=== PATIENT | female | born 1960 | race Caucasian/White ===

== ENCOUNTER → 2017-06-24 | Outpatient (CLI) | payer OTHER ==
--- NOTE | 2017-06-24 10:56 | CTL ---
EXAMINATION TYPE: CT Low Dose Lung DATE OF EXAM ORDERED: 06/24/2017 HISTORY: Personal history of tobacco abuse. Lung cancer screening. CT DLP: 37.[address] CTDI: 1.10 mGy Automated exposure control for dose reduction was used. SCREENING VISIT: Second COMPARISON: 11/07/2015 TECHNIQUE: Low dose computed tomography scan was performed through the chest at 1 mm thick sections a nd reconstructed images in the coronal plane at [address] DIAGNOSTIC QUALITY: Satisfactory FINDINGS: LUNG NODULES: There is a left upper lobe solid 7 mm pulmonary nodule on series 4 image 58 adjacent to an area of li near pleural parenchymal scarring. This demonstrates interval growth as this previously measured appr oximately 4 mm. The previously seen right sided solid pulmonary nodule again measures 3 mm and is unchanged, pleural- based in favored to represent an area of pleural thickening or scarring rather than a true pulmonary nodule. LUNGS: COPD: Severity: Moderate Fibrosis: Severity: None Lymph nodes: No pathologically enlarged lymph nodes. 7 mm short axis aorticopulmonary window lymph no de is unchanged from the prior. Other findings: There are scattered areas of subsegmental atelectasis. RIGHT PLEURAL SPACE: Effusion: None Calcification: None Thickening: Solitary pulmonary nodule versus focal pleural thickening is described above in the lung nodule section. Pneumothorax: None LEFT PLEURAL SPACE: Effusion: None Calcification: None Thickening: None Pneumothorax: None HEART: Heart Size: Nonenlarged. Ascending thoracic aorta is within normal limits measuring 3.3 cm as is the main pulmonary artery. Coronary calcification: Moderate Pericardial effusion: None OTHER FINDINGS: Upper abdomen: There is a somewhat lobulated contour of the left upper pole of the kidney versus exop hytic renal lesion on series 3 image 286. Further evaluation is recommended. Bony thorax: Mild multilevel degenerative changes of the thoracic spine. No suspicious osseous lesion . Supraclavicular region: Unremarkable IMPRESSION: 1. Interval growth of a left upper lobe solid 7 mm pulmonary nodule fitting criteria of lung RADS cat egory 4A (suspicious-finding). Low-dose CT in 3 months is recommended. 2. Lobulated contour versus left upper pole renal mass. Further evaluation with either renal ultrasou nd or dynamic contrast-enhanced CT abdomen is recommended. FOLLOW UP CT CHEST RECOMMENDATION: Low-dose CT in 3 months is recommended. Additional recommendation for the suspected left renal lesion as described above in the impression. CT LUNG RAD: 4A
--- NOTE | 2017-06-24 11:02 | MM ---
Reason for exam: additional evaluation requested from prior study. Last mammogram was performed 1 year and 7 months ago. History: Patient is postmenopausal. Took hormonal contraceptives beginning at age 19. Took estrogen for 5 years beginning at age 41. Took progesterone for 5 years beginning at age 41. Physical Findings: Nurse did not find any significant physical abnormalities on exam. MG Diagnostic Mammo w CAD JORGE Bilateral CC and MLO view(s) were taken. Prior study comparison: November 20, 2015, right breast MG work up mamm w CAD RT. November 07, 2015, bilateral MG screening mammo w CAD. The breast tissue is heterogeneously dense. This may lower the sensitivity of mammography. Finding: There are typically benign round calcifications in the right breast. There is a chronic nodularity in the right breast. There is no discrete abnormality. These results were verbally communicated with the patient and result sheet given to the patient on 06/24/17. ASSESSMENT: Benign, BI-RAD 2 RECOMMENDATION: Routine screening mammogram of both breasts in 1 year.
== END | disposition home or self-care (01) ==
LOC: RADCTMAIN 09:46
PROVIDERS: ATTEND Pediatrics
DX: R92.8 Other abnormal and inconclusive findings on diagnostic imaging of breast (principal); R91.1 Solitary pulmonary nodule; Z87.891 Personal history of nicotine dependence
CPT/HCPCS: 77066; G0297

== ENCOUNTER → 2017-07-09 | Outpatient (CLI) | payer OTHER ==
--- NOTE | 2017-07-09 11:20 | US ---
EXAMINATION TYPE: US abd limited kidneys/bladder DATE OF EXAM: 07/09/2017 COMPARISON: Low-dose CT 06/24/2017 CLINICAL HISTORY: 56-year-old female N28.9 Kidney lesion. Left renal lesion seen on CT Technique: Multiple sonographic images of the right upper quadrant, kidneys, and bladder are obtained . FINDINGS: Liver Length: 15.3 cm Gallbladder Wall: 0.2 cm CBD: 7.7 mm Right Kidney: 10.1 x 3.7 x 5.4 cm Left Kidney: 10.0 x 4.4 x 4.9 cm Pancreas: wnl Liver: wnl Gallbladder: Multiple, mobile gallstones, no evidence of Sweeney's sign. No abnormal distention or wa ll thickening. CBD: Mildly dilated for patient's age. Right Kidney: No hydronephrosis Left Kidney: Solid, mass upper pole with a couple tiny 9 mm and smaller cystic components measuring 2.5 x 2.2 x 3.0 cm Bladder: wnl Bilateral Jets Seen No IMPRESSION: 1. Suspicious 3.0 cm left upper pole solid renal mass. RCC should be excluded. 2. Cholelithiasis. 3. The bile duct is mildly dilated. Correlate with alkaline phosphatase and bilirubin levels to exclu de the possibility of biliary obstruction.
== END | disposition home or self-care (01) ==
LOC: RADUSWWP 08:09
PROVIDERS: ATTEND Pediatrics
DX: K80.20 Calculus of gallbladder without cholecystitis without obstruction (principal); K83.8 Other specified diseases of biliary tract
CPT/HCPCS: 76705; 76770

== ENCOUNTER → 2017-07-25 | Outpatient (CLI) | payer OTHER ==
[2017-07-25 10:53] LABS: Blood Urea Nitrogen 30 mg/dL (7-17)
--- NOTE | 2017-07-25 13:48 | CT ---
EXAMINATION TYPE: CT abdomen wo/w con DATE OF EXAM: 07/25/2017 HISTORY: Renal mass CT DLP: 288.4mGycm Automated Exposure Control for Dose Reduction was Utilized. CONTRAST: CT scan of the abdomen and pelvis is performed without and with IV Contrast, patient injected with 10 0 mL of Isovue 300. COMPARISON: 06/24/2017 FINDINGS: LUNG BASES: The patient's known moderate emphysematous changes are less appreciated at the lung bases than on the lung apices on the prior exam of 06/24/2017. LIVER/GB: Subcapsular subcentimeter area of hypoattenuation within the left hepatic lobe on series 6 image 21 may represent focal fatty infiltration as it is seen along the fissure for the falciform lig ament. Cholelithiasis is noted. No intrahepatic biliary ductal dilatation. PANCREAS: No significant abnormality is seen. SPLEEN: No significant abnormality is seen. No splenomegaly. ADRENALS: No nodularity or thickening. KIDNEYS: There is a complex partially cystic, partially solid lobulated mass emanating from the later al aspect of the left upper pole of the kidney measuring approximately 2.5 x 2.5 x 2.9 cm in transver se by by anterior posterior by craniocaudal dimension measured on series 6 image 12 and series 12 malu ge 67. There are internal enhancing cystic components and thick enhancing internal septa. This mass a buts the left upper pole minor calyces and therefore this patient may not be a candidate for cryoabla tion or radiofrequency ablation. This is best visualized on coronal series 12 image 64. Renal arterial calcifications are noted on the unenhanced images. No hydronephrosis or nephrolithiasi s. The left gonadal vein is slightly engorged although there does not appear to be thrombosis. Pelvic vascular congestion is possible. No appreciable thrombus within the left renal vein coronal imaging. BOWEL: No dilation. Moderate amount retained colonic stool. LYMPH NODES: No greater than 1cm abdominal or pelvic lymph nodes are appreciated. OSSEOUS STRUCTURES: Degenerative changes without suspicious osseous lesion. IMPRESSION: 1. Complex enhancing 2.5 x 2.5 x 2.9 cm left upper pole highly suspicious mass that should be conside red renal cell carcinoma until proven otherwise. Of note this abuts the left upper pole calyx and the refore the patient may not be a candidate for cryoablation or radiofrequency ablation. Percutaneous b iopsy could be considered or surgical management. 2. No evidence of abdominal adenopathy, suspicious osseous lesion, or suspicious visceral metastasis. No appreciable thrombus within the left renal vein. Left gonadal vein is slightly engorged without i dentified thrombosis. Pelvic congestion syndrome is possible.
== END ==
LOC: RADCTMAIN 10:14
PROVIDERS: ATTEND Urology
DX: D41.02 Neoplasm of uncertain behavior of left kidney (principal)
CPT/HCPCS: 82565; 84520; 74170; Q9967

== ENCOUNTER → 2017-12-22 | Outpatient (CLI) | payer OTHER ==
--- NOTE | 2017-12-22 12:20 | CTL ---
EXAMINATION TYPE: CT Low Dose Lung DATE OF EXAM ORDERED: 12/22/2017 HISTORY: Long-term tobacco use. Lung cancer screening CT DLP: [address] CTDI: 1.34 mGy Automated exposure control for dose reduction was used. SCREENING VISIT: Third study COMPARISON: Prior exams June 24, 2017 and older study November 07, 2015 TECHNIQUE: Low dose computed tomography scan was performed through the chest at 1 mm thick sections a nd reconstructed images in the coronal plane at [address] DIAGNOSTIC QUALITY: Satisfactory FINDINGS: LUNG NODULES: Present, detailed below: Right lung a nodule with a size of 7 x 6 mm solid nodule left upper lobe anteriorly axial image 61 re demonstrated not significantly changed in size from most recent CT, increased in size from 2016 CT. No new nodules are evident LUNGS: COPD: Severity: Moderate Fibrosis: Severity: Mild linear scarring in bases and anterior medially redemonstrated Lymph nodes: None Other findings: None BILATERAL PLEURAL SPACE: Effusion: None Calcification: None Thickening: None Pneumothorax: None HEART: Heart Size: Normal Coronary calcification: Moderate to severe 3 vessel redemonstrated Pericardial effusion: None OTHER FINDINGS: Upper abdomen: Suspect interval surgery or new sutures lateral aspect upper pole left kidney. Bony thorax: None Supraclavicular region: None Other: None IMPRESSION: Stable 7 x 6 mm left upper lobe nodule FOLLOW UP CT CHEST RECOMMENDATION: Follow-up low-dose lung screening CT in [address] LUNG RAD: Lung-Rad 3 Probably Benign
== END | disposition home or self-care (01) ==
LOC: RADCTMAIN 11:13
PROVIDERS: ATTEND Pediatrics
DX: Z12.2 Encounter for screening for malignant neoplasm of respiratory organs (principal); R91.1 Solitary pulmonary nodule; Z87.891 Personal history of nicotine dependence

== ENCOUNTER → 2018-04-20 | Outpatient (CLI) | payer OTHER ==
--- NOTE | 2018-04-22 14:59 | MR ---
EXAMINATION TYPE: MR brain wo/w con DATE OF EXAM: 04/20/2018 COMPARISON: Outside imaging of an MRI of the brain with and without gadolinium and MRA brain dated HISTORY: No symptoms, F/U to previous MRI done at [facility] TECHNIQUE: Multiplanar, multisequence images of the brain and brainstem is performed without and with IV contras t, utilizing 5 mL intravenous Gadavist . FINDINGS: Bone marrow signal is within normal limits. Diffusion weighted images demonstrate no eviden ce of a recent infarct or other diffusion abnormality. There are similar size and number of the T2/T1 hyperintense nonspecific white matter changes throughout the periventricular and subcortical white m atter. For instance a Y-shaped subcortical white matter change in the left paramedian frontal lobe me asures 1.8 x 0.8 cm, unchanged from the prior of 09/02/2017. This is overall moderate burden. There is also nonspecific T2/FLAIR hyperintensity within the central midbrain and paramedian sonu. These nons pecific white matter changes do not demonstrate abnormal enhancement. There is no extra-axial fluid collection. The ventricular system and cisternal spaces are normal in s ize and appearance. The brain volume is age appropriate. Midline structures demonstrate normal morphology. The craniocervical junction appears within normal limits. Major intracranial flow voids are maintained. Post contrast images demonstrate no abnormal en hancement. The dural venous sinuses appear patent. Scant mucosal thickening is seen within the chest. The remaining visualized sinuses are clear and the globes are intact. IMPRESSION: 1. No abnormal intracranial enhancement. No MR evidence of intracranial metastasis. 2. Similar size and number of the moderate burden periventricular and subcortical nonspecific white m atter change in comparison to the prior MRI dated 09/02/2017. Most commonly these relate to sequela of microangiopathy although other vasculitis or demyelinating disease remain a possibility. No progress ion. 3. No acute infarct or midline shift. 4. Bone marrow signal remains unremarkable.
== END ==
LOC: RADMRIMAIN 20:25
PROVIDERS: ATTEND Pediatrics
DX: I73.9 Peripheral vascular disease, unspecified (principal); R90.89 Other abnormal findings on diagnostic imaging of central nervous system
CPT/HCPCS: 70553; A9585

== ENCOUNTER → 2018-05-15 | Outpatient (CLI) | payer OTHER ==
[2018-05-15 16:53] LABS: Blood Urea Nitrogen 23 mg/dL (7-17)
--- NOTE | 2018-05-19 13:18 | CT ---
EXAMINATION TYPE: CT ChestAbdPelvis wo/w con DATE OF EXAM: 05/15/2018 COMPARISON: Low dose lung CT dated 12/22/2017, 06/24/2017 and 11/07/2015. CT abdomen dated 07/25/2017. HISTORY: Renal cell carcinoma of left kidney. CT DLP: 691.7 mGycm. Automated Exposure Control for Dose Reduction was Utilized. CONTRAST: CT scan of the thorax, abdomen and pelvis is performed without and with IV Contrast, patient injected with 100ml mL of Isovue 300. FINDINGS: LUNGS: There is a stable 7 to 8 mm left upper lobe lobe pulmonary nodule in comparison to the prior e xams of 2018 however in comparison to the exam of 2016 there is minimal interval growth. When measure d in a similar fashion this measures 5 mm on the prior of 2015. A punctate focus of intranodular fat is identified therefore this is overall favored to be a benign slow-growing lesion. There is mild to moderate underlying pulmonary emphysema. The remainder of the lungs are grossly clear, there is no co ncerning parenchymal mass or nodule identified. There is no pleural effusion or pneumothorax seen. The tracheobronchial tree is patent. MEDIASTINUM: There are no greater than 1 cm hilar or mediastinal lymph nodes. No pericardial effusi on is seen. Moderate coronary calcifications are evident. LIVER/GB: No significant abnormality is appreciated. Lamellated gallstones are seen. PANCREAS: No biliary ductal dilatation. Pancreatic parenchyma enhances homogeneously. SPLEEN: No significant abnormality is seen. No splenic enlargement. ADRENALS: No nodularity or thickening. KIDNEYS: Noncontrast hyperdense curvilinear surgical material seen within the peripheral posterior la teral left upper pole kidney. On the nephrographic phase there is a focal cortical defect with elonga munira area of hypoattenuation extending to the periphery of the spleen may represent granulation tissue and postsurgical change. As this does not demonstrate enhancement. Remainder of the left kidney on t he nephrogenic and delayed phase demonstrates no focal mass. No uroepithelial thickening is seen on t he delayed phase of either kidney. Right kidney is unremarkable. No new local adenopathy or soft tiss ue deposition in the surgical bed is seen. BOWEL: Moderate amount retained colonic stool is noted. No dilated large or small bowel. LYMPH NODES: No greater than 1cm abdominal or pelvic lymph nodes are appreciated. OSSEOUS STRUCTURES: Cervical fusion device is present. No new suspicious osseous lesions are identifi ed. IMPRESSION: 1. Postsurgical change of a partial nephrectomy of the left upper pole with nonenhancing fluid attenu ation seen peripherally at the surgical site likely representing early granulation tissue. Continued surveillance is recommended. No new local adenopathy. No new evidence of metastasis within the chest , abdomen, nor pelvis. 2. Slow-growing left upper lobe pulmonary nodule is seen dating back to 11/07/2015 and appears to cont ain punctate intranodular macroscopic fat overall favored to be benign.
== END | disposition home or self-care (01) ==
LOC: RADCTMAIN 15:40
PROVIDERS: ATTEND Pediatrics
DX: Z08 Encounter for follow-up examination after completed treatment for malignant neoplasm (principal); R91.1 Solitary pulmonary nodule; Z90.5 Acquired absence of kidney; Z85.528 Personal history of other malignant neoplasm of kidney
CPT/HCPCS: 82565; 84520; 71270; 74178; 36415; Q9967

== ENCOUNTER → 2019-01-05 | Outpatient (CLI) | payer OTHER ==
[2019-01-05 10:32] LABS: African American GFR (CKD) >90 (>60 ml/min/1.73 sqM); Blood Urea Nitrogen 26 mg/dL (7-17)
--- NOTE | 2019-01-05 16:17 | CT ---
EXAMINATION TYPE: CT chest w con DATE OF EXAM: 01/05/2019 COMPARISON: CT chest abdomen pelvis dated 05/15/2018 and low dose lung CTs dating back to 11/07/2015. HISTORY: Pulmonary nodule CT DLP: 108.00 mGycm. Automated Exposure Control for Dose Reduction was Utilized. TECHNIQUE: CT scan of the thorax is performed following with IV Contrast, patient injected with 100 ml mL of Isovue 300. FINDINGS: LUNGS: The previously seen solid 8 mm left upper lobe pulmonary nodule (prior on series 4 image 13) i s now some solid and measures only 5 mm. This is of marked decrease density in comparison to the prio r. On the prior exam a punctate focus of intranodular fat was seen. There is redemonstration of mild to moderate underlying centrilobular pulmonary emphysema. No new pulmonary nodule is identified. Ther e is bandlike anterior right upper lobe pleural parenchymal scarring. Minimal lingular and right midd le lobe subsegmental atelectasis is seen. No focal consolidation, pleural effusion or pneumothorax. Pleural nodularity is redemonstrated measur ing 3 mm along the posterior right upper lobe on image 20. Again this is favored to represent stable scarring. Just distal to the stacey within the right mainstem bronchus there is an elongated filling defect. Th is appears inspissated and is marked on soft tissue algorithm series 3 image 28 and 29 and likely rep resents secretions rather than endobronchial mass. This is new from the prior exam. MEDIASTINUM: There are no greater than 1 cm hilar or mediastinal lymph nodes. No pericardial effusi on is seen. Moderate coronary artery calcifications are present. Mild thickening of the gastroesopha geal junction, most commonly related to esophagitis. OTHER: Partial visualization of cervical fusion device. Mild calcific atheromatous change of the thor acic aorta. Ascending thoracic aorta is within normal limits measuring 3.1 cm as is the main pulmonar y artery measuring 2.1 cm. Descending thoracic aorta is also within normal limits. Curvilinear suture material from the partial nephrectomy in the left upper pole of the kidney is agai n seen. The previously suspected curvilinear granulation tissue but elongated in the splenorenal xochitl a appears stable. This is marked on series 3 image 65. No new left renal vein thrombosis in the visua lized left renal vein. Extensive atheromatous change of the visualized abdominal aorta. Near angiogra phic phase of the liver slightly limits evaluation. The liver appears overall heterogenous an also li mits evaluation. Mild multilevel degenerative changes of the thoracic spine. No new suspicious osseous lesion. IMPRESSION: 1. The previously seen 8 mm solid left upper lobe pulmonary nodule is diminished intensity and size n ow measuring only 5 mm. Correlate with any recent treatment. 2. Presumably granulation tissue neural remain similar to the prior exam of 05/15/2018 surrounding the partial nephrectomy site of the left upper pole of the kidney. No new left renal vein thrombosis nor suspicious cortical mass. 3. Just distal to the stacey in the right mainstem bronchus elongated filling defect is seen that sergio ears inspissated on lung windows likely representing secretions rather than endobronchial mass. This is new from the prior. Attention on follow-up exams. 4. Mild thickening at the gastroesophageal junction most commonly related to esophagitis. 5. No new pulmonary nodules or suspicious osseous lesions. No new mediastinal adenopathy. Liver is freitas boptimally evaluated on this exam.
== END | disposition home or self-care (01) ==
LOC: RADCTMAIN 09:37
PROVIDERS: ATTEND Pediatrics
DX: J98.09 Other diseases of bronchus, not elsewhere classified (principal); R91.1 Solitary pulmonary nodule; C64.2 Malignant neoplasm of left kidney, except renal pelvis; Z90.5 Acquired absence of kidney
CPT/HCPCS: 82565; 84520; 71260; 36415; Q9967

== ENCOUNTER → 2019-02-01 | Outpatient (CLI) | payer OTHER ==
--- NOTE | 2019-02-01 16:07 | XR ---
EXAMINATION TYPE: XR chest 2V DATE OF EXAM: 02/01/2019 COMPARISON: CT 01/05/2019 HISTORY: Cough TECHNIQUE: Frontal and lateral views of the chest are obtained. FINDINGS: There is no focal air space opacity, pleural effusion, or pneumothorax seen. The cardiac silhouette size is stable, small. The osseous structures are intact. Prominent lung volumes are pre sent consistent with emphysema and COPD. Postop changes are noted in the cervical spine. There are co ronary calcifications. IMPRESSION: No acute cardiopulmonary process.
== END | disposition home or self-care (01) ==
LOC: RADXRMAIN 13:09
PROVIDERS: ATTEND Physician Assistant
DX: R05 Cough (principal)
CPT/HCPCS: 71046

== ENCOUNTER → 2019-02-03 | Outpatient (CLI) | payer OTHER ==
[2019-02-03 14:59] LABS: Basophils # (A) 0.1 k/uL (0-0.2); Basophils % (A) 1 %; Eosinophils # (A) 0.1 k/uL (0-0.7); Eosinophils % (A) 0 %; HGB 18.3 gm/dL (11.4-16.0); Lymphocytes # (A) 1.4 k/uL (1.0-4.8); Lymphocytes % (A) 12 %; MCH 29.9 pg (25.0-35.0); MCHC 32.3 g/dL (31.0-37.0); MCV 92.6 fL (80.0-100.0); Mean Platelet Volume 5.7; Monocytes # (A) 0.4 k/uL (0-1.0); Monocytes % (A) 4 %; Neutrophils # (A) 9.4 k/uL (1.3-7.7); Neutrophils % (A) 82 %; Platelet Count 285 k/uL (150-450); RDW 13.4 % (11.5-15.5); WBC 11.5 k/uL (3.8-10.6)
[2019-02-03 15:01] LABS: ALT 54 U/L (9-52); AST 33 U/L (14-36); African American GFR (CKD) >90 (>60 ml/min/1.73 sqM); Albumin 4.5 g/dL (3.5-5.0); Albumin/Globulin Ratio 1.6; Alkaline Phosphatase 107 U/L (38-126); Anion Gap 10 mmol/L; Blood Urea Nitrogen 24 mg/dL (7-17); Calcium 9.8 mg/dL (8.4-10.2); Carbon Dioxide 30 mmol/L (22-30); Chloride 98 mmol/L (98-107); Creatine Kinase 30 U/L (30-135); Globulin 2.9 g/dL; Glucose 150 mg/dL (74-99); Non-African American GFR(CKD) >90 (>60 ml/min/1.73 sqM); Potassium 4.2 mmol/L (3.5-5.1); Sodium 138 mmol/L (137-145); Total Bilirubin 0.5 mg/dL (0.2-1.3); Total Protein 7.4 g/dL (6.3-8.2)
[2019-02-03 15:02] LABS: HCT 56.5 % (34.0-46.0)
[2019-02-03 15:31] LABS: Creatine Kinase MB 1.8 ng/mL (0.0-2.4); Troponin I <0.012 ng/mL (0.000-0.034)
== END | disposition home or self-care (01) ==
LOC: LABWHC1 14:30
PROVIDERS: ATTEND Physician Assistant
DX: R07.9 Chest pain, unspecified (principal)
CPT/HCPCS: 36415; 80053; 82550; 82553; 84484; 85025; 85379

== ENCOUNTER → 2019-08-23 | Outpatient (CLI) | payer OTHER ==
--- NOTE | 2019-08-23 08:54 | CT ---
EXAMINATION TYPE: CT ChestAbdPelvis w con, CT abdomen pelvis wo con DATE OF EXAM: 08/23/2019 COMPARISON: Prior chest CT January 05, 2019. Prior body CT May 15, [address] studies. HISTORY: follow up pulmonary nodule and renal cancer (accession [id number]), follow up renal cancer (ac cession [id number]) CT DLP: 394.5 (accession [id number]), 191.4 (accession [id number]) mGycm. Automated Exposure Control for Dose Reduction was Utilized. CONTRAST: CT of the abdomen and pelvis was performed with oral but without IV contrast. CT scan of the thorax, abdomen and pelvis is then performed with oral and with IV Contrast, patient i njected with 80 mL of Isovue 300. FINDINGS: LUNGS: Background fairly moderate underlying emphysematous change is redemonstrated. Previously visua lized anterior left upper lobe nodule continues to show interval improvement with 4 x 3 mm residual s car or scarlike opacity on axial image 29. Stable 3 mm subpleural nodular scarring posterior right up per lung axial image 38 unchanged from several prior studies. Persistent moderate anterior right uppe r to mid lung linear scarring is redemonstrated. Similar [id number] anterior left mid lung line ar scarring is again seen. No new greater than 4 mm pulmonary nodules or masses. No pleural effusion or pneumothorax is evident bilaterally. Improved aeration right mainstem bronchus on current study. MEDIASTINUM: There are no new greater than 1 cm hilar or mediastinal lymph nodes. No cardiomegaly o r pericardial effusion is seen. Coronary artery calcification is redemonstrated. LIVER/GB: Dependent calcified gallstones and gallbladder are redemonstrated. Stable hepatomegaly. PANCREAS: No significant abnormality is seen. SPLEEN: No significant abnormality is seen. ADRENALS: No significant abnormality is seen. KIDNEYS: Noncontrast images show no renal calculi bilaterally. Persistent postsurgical change lateral ly of the pole of the left kidney at site of prior partial nephrectomy with focal cortical volume los s. Hyperdense curvilinear surgical suture material redemonstrated. Postcontrast images show no new en hancing tissue. Persistent area of exophytic low density probable scar tissue remains present near im age 89 series 4 without significant change or growth from most recent CT May 15, 2018. Postcontrast images redemonstrate symmetric cortical medullary uptake and excretion without hydronephrosis seen b ilaterally. Urinary bladder appears within normal limits. BOWEL: Oral contrast reaches the proximal to mid sigmoid colon. No suspicious small or large bowel di latation. Incidental normal contrast-filled appendix in the right pelvis. GENITAL ORGANS: Anteverted uterus projects to right of midline. Slight stable prominence of the drain ing left ovarian veins is noted. LYMPH NODES: No greater than 1cm abdominal or pelvic lymph nodes are appreciated. OSSEOUS STRUCTURES: Fusion hardware in the cervical spine is partially imaged. OTHER: Fairly severe calcified plaque of the abdominal aorta extends to the iliac branch vessels. IMPRESSION: No new suspicious mass or adenopathy to suggest local or metastatic neoplastic recurrence .
== END | disposition home or self-care (01) ==
LOC: RADCTMAIN 06:09
PROVIDERS: ATTEND Physician Assistant
DX: C64.2 Malignant neoplasm of left kidney, except renal pelvis (principal); R91.1 Solitary pulmonary nodule
CPT/HCPCS: 71260; 74176; 74177; Q9967

== ENCOUNTER → 2019-09-28 | Outpatient (CLI) | payer OTHER ==
--- NOTE | 2019-09-29 10:06 | MM ---
Reason for exam: screening (asymptomatic). Last mammogram was performed 2 years and 3 months ago. History: Patient is postmenopausal. Took hormonal contraceptives beginning at age 19. Took estrogen for 5 years beginning at age 41. Took progesterone for 5 years beginning at age 41. Physical Findings: A clinical breast exam by your physician is recommended on an annual basis and results should be correlated with mammographic findings. MG Screening Mammo w CAD Bilateral CC and MLO view(s) were taken. Prior study comparison: June 24, 2017, bilateral MG diagnostic mammo w CAD JORGE. November 20, 2015, right breast MG work up mamm w CAD RT. The breast tissue is heterogeneously dense. This may lower the sensitivity of mammography. Benign appearing bilateral calcifications. There is chronic nodularity in the right breast, stable. ASSESSMENT: Benign, BI-RAD 2 RECOMMENDATION: Routine screening mammogram of both breasts in 1 year.
== END | disposition home or self-care (01) ==
LOC: RADMAMWWP 13:32
PROVIDERS: ATTEND Physician Assistant
DX: Z12.31 Encounter for screening mammogram for malignant neoplasm of breast (principal)
CPT/HCPCS: 77067

== ENCOUNTER → 2020-09-20 | Outpatient (CLI) | payer OTHER ==
--- NOTE | 2020-10-02 23:03 | CTL ---
EXAMINATION TYPE: CT Low Dose Lung DATE OF EXAM ORDERED: 09/20/2020 HISTORY: 60-year-old female Personal hx nicotine dependence. Lung cancer screening CT DLP: 54.[address] CTDI: 1.41 mGy Automated exposure control for dose reduction was used. SCREENING VISIT: Annual follow-up COMPARISON: 08/23/2019, 01/05/2019 TECHNIQUE: Low dose computed tomography scan was performed through the chest with coronal and sagitta l reconstructions. CT DIAGNOSTIC QUALITY: Satisfactory FINDINGS: Heart normal size without pericardial effusion scattered three-vessel coronary calcifications are rem arkable for coronary artery disease. Aorta normal caliber with scattered mild atherosclerotic calcifications. There is conventional vessel branching anatomy. No thoracic lymphadenopathy by CT size criteria allowing for noncontrast technique. Biapical pleural-parenchymal scarring is noted. There is some septal interstitial thickening in the u pper lungs that could reflect some underlying scarring. Mild to moderate diffuse bronchial wall thick ening. Scattered bands of atelectasis and scarring are present bilaterally. Subpleural pulmonary nodule posterior right upper lobe measuring 5 mm, axial image 84 is unchanged ba ck to 2019. 4 mm pulmonary nodule left mid lung along the major fissure, axial image 173 remains unchanged, typic al of a intrafissural lymph node. No consolidation or pleural effusion. Abdomen reported separately. Bones: ACF hardware partially visualized. No osseous destructive process. IMPRESSION: 1. A couple pulmonary nodules measuring up to 5 mm, stable back to 2019. 2. COPD with [id number] emphysema and scattered bands of atelectasis and/or scarring. 3. CAD with 3 vessel coronary artery calcifications. 4. Abdomen reported separately. CT LUNG RAD AND CT CHEST RECOMMENDATION: Lung-Rad 2 Benign Appearance or Behavior: Continue annual sc reening with LDCT in 12 months.
== END | disposition home or self-care (01) ==
LOC: RADCTMAIN 15:02
PROVIDERS: ATTEND Pediatrics
DX: Z12.2 Encounter for screening for malignant neoplasm of respiratory organs (principal); R91.8 Other nonspecific abnormal finding of lung field; J43.9 Emphysema, unspecified; I25.10 Atherosclerotic heart disease of native coronary artery without angina pectoris; Z87.891 Personal history of nicotine dependence
CPT/HCPCS: 71271

== ENCOUNTER → 2020-09-20 | Outpatient (CLI) | payer OTHER ==
[2020-09-20 15:43] LABS: African American GFR (CKD) >90 (>60 ml/min/1.73 sqM); Blood Urea Nitrogen 12 mg/dL (7-17); Non-African American GFR(CKD) >90 (>60 ml/min/1.73 sqM)
--- NOTE | 2020-10-02 23:21 | CT ---
EXAMINATION TYPE: CT abdomen pelvis w con DATE OF EXAM: 09/20/2020 COMPARISON: 08/23/2019, 05/27/2018 HISTORY: 60-year-old female C64.9, Renal cell carcinoma, Malignant neoplasm of unspecified kidney, ex cept renal pelvis TECHNIQUE: Contiguous axial scanning of the abdomen and pelvis following administration of 100 ml Iso noé 300 IV contrast. Delayed images through the kidneys and coronal/sagittal reconstructions perform ed. CT DLP: 565 mGycm Automated exposure control for dose reduction was used. FINDINGS: Chest reported separately. Moderate atherosclerotic calcifications abdominal aorta and moderate to severe atherosclerotic calcif ications within the bilateral iliac arteries. No focal liver lesion or biliary ductal dilatation. Portal venous system is patent. Couple gallstones are noted measuring up to 1 cm. No abnormal gallbladder distention. Adrenal glands, right kidney, spleen, and pancreas appear within normal limits. Redemonstrated cortical irregularity and heterogeneous density along the lateral upper pole left kidn ey. This measures approximately 1.5 cm versus 1.6 cm on 08/23/2019 and 1.8 cm on 05/15/2018. No enlargin g mass is identified. No hydronephrosis. No dilated small bowel, free fluid, or free air. No mesenteric or retroperitoneal identified allowing for paucity of intra-abdominal fat limiting assessment. Moderate stool within the right hemicolon. No pericolonic inflammatory change. Bladder partially urine distended. Uterus is anteverted. Neither ovary clearly delineated likely due to clustered bowel loops and small, postmenopausal size. No abnormal fluid collection in the pelvis o r pelvic lymphadenopathy. Bones: No osseous destructive process. IMPRESSION: 1. CHEST REPORTED SEPARATELY. 2. POSTTREATMENT CHANGE ALONG THE LATERAL UPPER POLE OF THE LEFT KIDNEY SHOWS GRADUALLY DECREASING SI ZE CURRENTLY MEASURING 1.5 CM VERSUS 1.8 CM ON 05/27/2018. NO EVIDENCE FOR RECURRENT OR METASTATIC DIS EASE. 3. MODERATE ATHEROSCLEROTIC CALCIFICATIONS WITHIN THE ABDOMINAL AORTA AND MODERATE TO SEVERE WITHIN T HE BILATERAL ILIAC ARTERIES. 4. CHOLELITHIASIS.
== END | disposition home or self-care (01) ==
LOC: RADCTMAIN 14:55
PROVIDERS: ATTEND Urology
DX: K80.20 Calculus of gallbladder without cholecystitis without obstruction (principal); I70.0 Atherosclerosis of aorta; Z85.528 Personal history of other malignant neoplasm of kidney
CPT/HCPCS: 82565; 84520; 74177; 36415; Q9967

== ENCOUNTER → 2021-10-08 | Outpatient (CLI) | payer OTHER ==
--- NOTE | 2021-10-08 13:54 | CTL ---
EXAMINATION TYPE: CT Low Dose Lung DATE OF EXAM ORDERED: 10/08/2021 HISTORY: Long-term tobacco use. Lung cancer screening CT DLP: 32.[address] CTDI: .9 mGy Automated exposure control for dose reduction was used. SCREENING VISIT: Fourth after baseline COMPARISON: Prior studies September 20, 2020 and older studies. TECHNIQUE: Low dose computed tomography scan was performed through the chest at 1 mm thick sections a nd reconstructed images in multiple planes at 1 mm and [address] DIAGNOSTIC QUALITY: Satisfactory FINDINGS: LUNG NODULES: Present, detailed below: A 5 x 3 mm solid nodule left upper lobe anteriorly axial image 73 redemonstrated less prominent from 2018 CT. Stable 5 x 4 mm peripheral posterior right upper lung nodule or nodular scarring axial image 92 No new or large and greater than 5 mm nodules are evident LUNGS: COPD: Severity: Moderate Fibrosis: Severity: Mild 2 moderate linear scarring in mid to lower lungs anterior is redemonstrated. Lymph nodes: None Other findings: None BILATERAL PLEURAL SPACE: Effusion: None Calcification: None Thickening: None Pneumothorax: None HEART: Heart Size: Normal Coronary calcification: Moderate to severe 3 vessel redemonstrated Pericardial effusion: None OTHER FINDINGS: Upper abdomen: Hyperdense material lateral aspect upper pole left kidney is partially imaged suspect posttreatment change. Bony thorax: Slight scoliotic curvature Supraclavicular region: Partial visualization of fusion plate in the lower cervical spine Other: None IMPRESSION: Less prominent 5 mm anterior left upper lung nodule. Stable peripheral 5 x 4 mm posterior right upper lung nodule. No new or enlarging greater than [address] LUNG RAD AND CT CHEST RECOMMENDATION: Lung-Rad 2 Benign Appearance or Behavior: Continue annual sc reening with LDCT in 12 months. S Modifier (other clinically significant findings): S Moderate to severe three-vessel coronary artery calcification redemonstrated. Correlate with addition al cardiac risk factors.
--- NOTE | 2021-10-08 14:10 | CT ---
EXAMINATION TYPE: CT abdomen pelvis w con DATE OF EXAM: 10/08/2021 HISTORY: renal CA CT DLP: 283.4mGycm Automated Exposure Control for Dose Reduction was Utilized. CONTRAST: CT scan of the abdomen and pelvis is performed with IV Contrast, patient injected with 70 mL of Isovu e 300. COMPARISON: Prior CT September 20, 2020 and older studies FINDINGS: LUNG BASES: Please refer to same day low-dose lung screening CT for complete details on the lung base s. LIVER/GB: There are 2 dependent adjacent calcified gallstones in the gallbladder redemonstrated. Sta ble hepatomegaly. PANCREAS: No significant abnormality is seen. SPLEEN: No significant abnormality is seen. ADRENALS: No significant abnormality is seen. KIDNEYS: Persistent postsurgical change laterally of the upper pole of the left kidney at site of [place] or partial nephrectomy with focal cortical volume loss. Heterogeneous partially exophytic Hyperdense 1.3 x 1.2 cm lesion redemonstrated image 15 series 4 is not significantly changed from most recent tw o. Symmetric cortical medullary uptake and excretion redemonstrated without new hydronephrosis or con cerning solid or cystic renal mass. Urinary bladder remain within normal limits. BOWEL: Oral contrast does not reach level of terminal ileum making evaluation of distal bowel subopti mal. Patient also has little intra-abdominal fat making evaluation of wall suboptimal. No suspicious small or large bowel dilatation. GENITAL ORGANS: Anteverted uterus projects to right of midline. LYMPH NODES: No new greater than 1cm abdominal or pelvic lymph nodes are appreciated. OSSEOUS STRUCTURES: No significant abnormality. OTHER: Fairly severe calcified plaque of the abdominal aorta extends to the iliac branch vessels. Sig nificant stenosis throughout bilateral iliac common and external iliac arteries is thought present. C orrelate clinically for bilateral peripheral arterial disease. IMPRESSION: No new suspicious or enlarging mass or adenopathy to suggest local or metastatic neoplast ic recurrence.
== END | disposition home or self-care (01) ==
LOC: RADCTMAIN 10:56
PROVIDERS: ATTEND Urology
DX: Z12.2 Encounter for screening for malignant neoplasm of respiratory organs (principal); C64.9 Malignant neoplasm of unspecified kidney, except renal pelvis
CPT/HCPCS: 74177; 71271; Q9967

== ENCOUNTER → 2022-10-10 | Outpatient (CLI) | payer OTHER | END | disposition home or self-care (01) | LOC: RADCTMAIN 07:02 | PROVIDERS: ATTEND Pediatrics | DX: Z53.9 Procedure and treatment not carried out, unspecified reason (principal) ==

== ENCOUNTER → 2022-10-10 | Outpatient (CLI) | payer OTHER ==
[2022-10-10 07:57] LABS: African American GFR (CKD) >90 (>60 ml/min/1.73 sqM); Blood Urea Nitrogen 18 mg/dL (7-17); Non-African American GFR(CKD) >90 (>60 ml/min/1.73 sqM)
--- NOTE | 2022-10-10 10:02 | CT ---
EXAMINATION TYPE: CT abdomen pelvis w con CT DLP: 303.80 mGycm, Automated exposure control for dose reduction was used. DATE OF EXAM: 10/10/2022 9:27 AM COMPARISON: CT abdomen pelvis most recent from most recent 10/08/2021 CLINICAL INDICATION:Female, 62 years old with history of C64.9 kidney ca; Kidney Cancer TECHNIQUE: Axial CT of the abdomen and pelvis. Sagittal and coronal reformats were created on a [employer] workstation. Contrast used:85 ml mL of Isovue 300 with IV Contrast, (none if empty) Oral contrast used: with Oral Contrast (none if empty) FINDINGS: LOWER CHEST: Unremarkable ABDOMEN LIVER: Unremarkable GALLBLADDER AND BILE DUCTS: Layering increased densities within the lumen consistent with gallstones are present. PANCREAS: Unremarkable. SPLEEN: Unremarkable. ADRENAL GLANDS: Unremarkable. KIDNEYS AND URETERS: Similar postsurgical change lateral aspect of the left upper pole of the kidney with prior partial nephrectomy with focal cortical volume loss. Heterogeneous partially exophytic Hyp erdense 1.3 x 1.3 cm lesion redemonstrated which is not significantly changed from most recent priors . There remains symmetric cortical medullary uptake and excretion redemonstrated without new hydronep hrosis or concerning solid or cystic renal mass. Urinary bladder remain within normal limits. PELVIS BLADDER: Unremarkable REPRODUCTIVE: Unremarkable. ABDOMEN & PELVIS STOMACH AND BOWEL: No evidence of bowel obstruction. PERITONEUM/RETROPERITONEUM: No evidence of pneumoperitoneum or free fluid. VASCULATURE: Mild atherosclerotic calcifications are present throughout the abdominal aorta and its b ranches. No evidence of aortic aneurysm. MUSCULOSKELETAL: No acute osseous abnormalities. Mild disc degeneration changes are present throughou t the thoracolumbar spine. LYMPH NODES: No gross evidence for lymphadenopathy. SOFT TISSUE/ABDOMINAL WALL: Unremarkable IMPRESSION: Stable left renal postsurgical changes without evidence for recurrence or enlarging mass.
--- NOTE | 2022-10-10 10:19 | CTL ---
EXAMINATION TYPE: CT Low Dose Lung DATE OF EXAM: 10/10/2022 9:27 AM CLINICAL INDICATION:Female, 62 years old with history of Z87.891 hx tobacco use; history of tobacco u se. COMPARISON: 10/08/2021 TECHNIQUE: Multiple axial non-contrast scans were obtained from approximately the lung apices through the upper abdomen. Coronal and sagittal reformatted images were obtained. Low dose technique was uti lized. CT DLP: mGycm, Automated exposure control for dose reduction was used. CT Contrast: Contrast used: None Oral contrast used: None FINDINGS: ======== Lack of intravenous contrast and low dose technique limits the evaluation of the vascular and soft ti ssue structures. LUNGS: No evidence of pulmonary fibrosis. No evidence of focal consolidation, pneumothorax or pleural effusion. Centrilobular emphysema changes. streaky atelectasis in the right anterior lung. Nodules: RUL: None. RML: None. RLL: None. ALAN: 3 mm left upper lung series 4 image 50. LLL: None. AIRWAY: Layering debris within the airways. Few opacified airways HEART: Size within normal limits. Atherosclerosis of the coronary which arteries which is moderate to severe. MEDIASTINUM: No gross evidence of adenopathy. VASCULATURE: Atherosclerotic calcifications are present throughout the aorta and its branches. MUSCULOSKELETAL: Mild disc degeneration changes are present throughout the thoracolumbar spine. Cervi andre fixation hardware SOFT TISSUES/LYMPH NODES: Unremarkable. LOWER NECK: No significant findings. UPPER ABDOMEN: Left renal cortical surgical changes.. IMPRESSION: 1. No clinically significant pulmonary nodules. 2. Stable nodular density left upper lung. 3. COPD with secretions within the major airways. CT LUNG RAD AND CT CHEST RECOMMENDATION: Lung-Rad 2 Benign Appearance or Behavior: Continue annual sc reening with LDCT in 12 months. S Modifier (other clinically significant findings): Moderate to severe coronary artery atherosclerosi s. Recommend smoking cessation (if current smoker), or continuation of smoking cessation (if prior smoke r). Annual screening for lung cancer with low-dose computed tomography is recommended in adults ages 55 to 77 years who have a 30 pack-year smoking history and currently smoke or have quit within the pa st 15 years. Screening should be discontinued once a person has not smoked for 15 years or develops a health problem that substantially limits life expectancy or the ability or willingness to have curat mansi lung surgery. Lung rads 2021 [email or web address]
== END | disposition home or self-care (01) ==
LOC: RADCTMAIN 07:01
PROVIDERS: ATTEND Urology
DX: C64.9 Malignant neoplasm of unspecified kidney, except renal pelvis (principal); J44.9 Chronic obstructive pulmonary disease, unspecified; R91.8 Other nonspecific abnormal finding of lung field; Z87.891 Personal history of nicotine dependence
CPT/HCPCS: 82565; 84520; 74177; 36415; 71271; Q9967

== ENCOUNTER → 2022-11-19 | Outpatient (CLI) | payer OTHER ==
--- NOTE | 2022-11-20 09:48 | MM ---
Reason for Exam: Screening (asymptomatic). Last mammogram was performed 3 year(s) and 2 month(s) ago. Patient History: Menarche at age 14. First Full-Term at age 23. Postmenopausal. Estrogen for 5 years from age 41 until age 46. Progesterone for 5 years from age 41 until age 46. Hormonal Contraceptives, from age 19 until age 34. Risk Values: Saba 5 year model risk: 1.3%. NCI Lifetime model risk: 5.5%. Prior Study Comparison: 11/20/2015 Right Diagnostic Mammogram, [facility]. 06/24/2017 Bilateral Diagnostic Mammogram, [facility]. 09/28/2019 Bilateral Screening Mammogram, [facility]. Tissue Density: The breast tissue is heterogeneously dense. This may lower the sensitivity of mammography. Findings: Analyzed By CAD. There is no suspicious group of microcalcifications or new suspicious mass. Overall Assessment: Negative, BI-RAD 1 Management: Screening Mammogram of both breasts in [address] [facility] will attempt to contact patient to return for supplemental views and ultrasound if indicated. Patient should continue monthly self-breast exams. A clinical breast exam by your physician is recommended on an annual basis. This exam should not preclude additional follow-up of suspicious palpable abnormalities. Note on Saba scores and lifetime risk: 1. A Saba score greater than 3% is considered moderate risk. If this is the case, consider specialist referral to assess eligibility for a risk reducing agent. 2. If overall lifetime risk for the development of breast cancer is 20% or higher, the patient may qualify for future screening with alternating mammogram and breast MRI. Electronically signed and approved by: Jaime Hart DO
== END | disposition home or self-care (01) ==
LOC: RADMAMWWP 10:44
PROVIDERS: ATTEND Pediatrics
DX: Z12.31 Encounter for screening mammogram for malignant neoplasm of breast (principal); Z78.0 Asymptomatic menopausal state
CPT/HCPCS: 77067

== ENCOUNTER → 2023-09-29 | Outpatient (CLI) | payer OTHER ==
--- NOTE | 2023-09-29 15:48 | US ---
EXAMINATION TYPE: US kidneys/renal and bladder DATE OF EXAM: 09/29/2023 COMPARISON: CT abdomen pelvis 10/10/2022 CLINICAL INDICATION: Female, 63 years old with history of E64.9 MALIGNANT NEOPLASM OF UNSP KIDNEY; H/ O renal CA left kidney with surgical removal of lesion upper pole EXAM MEASUREMENTS: Right Kidney: 10.1 x 4.3 x 4.8 cm Left Kidney: 9.1 x 4.2 x 4.3 cm Right Kidney: No hydronephrosis or masses seen Left Kidney: No evidence of hydro, calcification/post surgical changes to upper pole= 1.7 x 1.1 x 1.5 cm as visualized on prior CT Bladder: wnl Bilateral Jets seen: No There is no evidence for hydronephrosis at this point in time. No shadowing right renal calculi. Post surgical changes involving the upper pole of the left kidney with shadowing calcification identified. No suspicious soft tissue within the nephrectomy bed identified. No right renal masses identified. The urinary bladder is anechoic. Bilateral ureteral jets are not seen. IMPRESSION: 1. No hydronephrosis. 2. Postsurgical changes from partial left nephrectomy. No ultrasound evidence of abnormal soft tissue within the nephrectomy bed.
== END | disposition home or self-care (01) ==
LOC: RADUSWWP 15:17
PROVIDERS: ATTEND Urology
DX: C64.9 Malignant neoplasm of unspecified kidney, except renal pelvis (principal); Z90.5 Acquired absence of kidney
CPT/HCPCS: 76770

== ENCOUNTER → 2023-12-16 | Outpatient (CLI) | payer OTHER ==
--- NOTE | 2023-12-16 11:28 | CTL ---
EXAMINATION TYPE: CT Low Dose Lung DATE OF EXAM ORDERED: 12/16/2023 HISTORY: History of nicotine dependence, 30 pack-year history, current smoker. Lung cancer screening CT DLP: 34.[address] CTDI: 0.9 mGy Automated exposure control for dose reduction was used. SCREENING VISIT: Seventh screening visit COMPARISON: Multiple CT Low Dose Lung with most recent 10/10/2022 TECHNIQUE: Low dose computed tomography scan was performed through the chest at 1 mm thick sections a nd reconstructed images in multiple planes at 1 mm and [address] DIAGNOSTIC QUALITY: Satisfactory FINDINGS: Nodules: Stable left upper lobe 4.7 mm pulmonary nodule when measured with similar technique (series 6, image 16). No new or enlarging pulmonary nodules. LUNGS: COPD: Severity: Mild Fibrosis: Severity: None Lymph nodes: None Other findings: Linear scarring within the right middle lobe and lingula. RIGHT PLEURAL SPACE: Effusion: None Calcification: None Thickening: None Pneumothorax: None LEFT PLEURAL SPACE: Effusion: None Calcification: None Thickening: None Pneumothorax: None HEART: Heart Size: Normal Coronary Calcification: Moderate Pericardial Effusion: None OTHER FINDINGS: Upper abdomen: Left renal cortical changes redemonstrated. Bony thorax: Cervical fixation hardware redemonstrated. Mild disc degenerative changes are present th roughout the visualized thoracolumbar spine. Supraclavicular region: None Other: Layering debris within the trachea. Atelectatic calcification of the aorta and its branches IMPRESSION: 1. Stable left upper lobe 4.7 mm pulmonary nodule. No new or enlarging pulmonary nodules. 2. COPD changes with secretions within the trachea. CT LUNG RAD AND CT CHEST RECOMMENDATION: Lung-Rad 2 Benign Appearance or Behavior: Continue annual sc reening with LDCT in 12 months. S Modifier (other clinically significant findings): None [facility], , 12/16/2023 11:25 AM
== END | disposition home or self-care (01) ==
LOC: RADCTMAIN 09:53
PROVIDERS: ATTEND Pediatrics
DX: Z12.2 Encounter for screening for malignant neoplasm of respiratory organs (principal); J44.9 Chronic obstructive pulmonary disease, unspecified; R91.1 Solitary pulmonary nodule; F17.210 Nicotine dependence, cigarettes, uncomplicated
CPT/HCPCS: 71271